=== PATIENT | female | born 1980 | race Caucasian/White ===

== ENCOUNTER 2017-05-25 13:05 | Emergency (ER) | payer OTHER ==
[~2017-05-25] VITALS: Ht 157.5 cm; Wt 82.1 kg
[2017-05-25] MEDS ORDERED: OSELB75 PO (14:06)
[2017-05-25] MEDS ORDERED: PROVENTIL HFA6.7 G1 INH (14:06)
[2017-05-25] MEDS ORDERED: HYDROCODONE-AP1 EAC6 PO (14:06)
== END 2017-05-25 14:14 | disposition home or self-care (01) ==
LOC: ER 13:05
DX: J11.1 Influenza due to unidentified influenza virus with other respiratory manifestations (principal); F17.210 Nicotine dependence, cigarettes, uncomplicated; Z88.1 Allergy status to other antibiotic agents